=== PATIENT | male | born 1970 | race African-American/Black ===

== ENCOUNTER 2019-07-03 10:32 | Emergency (ER) | payer OTHER ==
[~2019-07-03] VITALS: Ht 180.3 cm; Wt 80.7 kg
[2019-07-03] MEDS ORDERED: TETRACAINE HCL 0.5% OPTH SOLN 4 ML BTL OP ONE (10:45)
[2019-07-03] MEDS ORDERED: FLUORESCEIN SOD(OPTH) 1 MG STRP OP ONE (10:45)
[2019-07-03] MEDS ORDERED: CLONIDINE HCL 0.1 MG TAB PO ONE (10:45)
== END 2019-07-03 12:48 | disposition home or self-care (01) ==
LOC: ER 10:32
DX: T26.61XA Corrosion of cornea and conjunctival sac, right eye, initial encounter (principal); T52.0X1A Toxic effect of petroleum products, accidental (unintentional), initial encounter; Y99.0 Civilian activity done for income or pay; I10 Essential (primary) hypertension
CPT/HCPCS: 99283